=== PATIENT | female | born 1970 | race Asian ===

== ENCOUNTER 2020-02-12 07:47 | Outpatient (CLI) | payer BC ==
--- NOTE | 2020-02-12 09:17 | Cat Scan Report ---
CT of the abdomen and pelvis without contrast INDICATION: UTI x2 weeks COMPARISON: None FINDINGS: Lung bases are clear. There is slight fatty infiltration liver. The spleen, pancreas and ad renal glands are grossly unremarkable with the left kidney appearing normal as well. A 1 cm low densi ty in the right upper pole is probably a cyst. There is a submillimeter stone in the right upper pole as well as a larger 5 mm stone in the right lower pole. No hydronephrosis or perinephric edema howev er. No definite gallbladder or biliary tree abnormality. No ascites or carcinomatosis. There is howev er moderate retroperitoneal adenopathy with several enlarged retroperitoneal lymph nodes measuring up to 3.2 cm in diameter. There is no celiac axis or mesenteric adenopathy however. CT of the pelvis shows a appendix. No uterine or adnexal masses. There has been prior tubal ligation. The diverticulosis or diverticulitis. No significant skeletal lesion. IMPRESSION: Moderate upper abdominal retroperitoneal adenopathy of uncertain etiology. PET scan may b e of benefit for further evaluation. There is slight right nephrolithiasis but no ureteral stone or o bstruction. Automated exposure control was utilized to diminish radiation dose. Signer Name: Damián Kaplan MD Signed: 02/12/2020 9:13 AM Workstation Name: [id number]
== END 2020-02-12 07:48 | disposition home or self-care (01) ==
LOC: CT 07:47
PROVIDERS: ATTEND Urology
DX: N20.0 Calculus of kidney (principal); R59.9 Enlarged lymph nodes, unspecified; N39.0 Urinary tract infection, site not specified
CPT/HCPCS: 74176

== ENCOUNTER 2020-09-10 22:27 | Observation (INO) | payer BC ==
[2020-09-10] MEDS ORDERED: ASPIRIN 325 MG TAB PO ONE (22:59)
--- NOTE | 2020-09-10 23:23 | XRay Report ---
CHEST 1 VIEW INDICATION / CLINICAL INFORMATION: Chest Pain. COMPARISON: None available. FINDINGS: SUPPORT DEVICES: None. HEART / MEDIASTINUM: No significant abnormality. LUNGS / PLEURA: Interstitial markings are slightly prominent bilaterally of uncertain clinical signif icance as I have no prior chest films for comparison. Lungs are otherwise clear. No area of consolida tion. No pleural effusion. No pneumothorax. ADDITIONAL FINDINGS: No significant additional findings. IMPRESSION: 1. Slightly prominent interstitial markings bilaterally. It is unclear if this is chronic as I have n o prior radiographs for comparison. 2. No other significant finding. Signer Name: Rosalie Albert MD Signed: 09/10/2020 11:18 PM Workstation Name: [id number]
[2020-09-10 23:46] LABS: Basophils # (Auto) 0.1 K/mm3 (0.0-0.1); Basophils % (Auto) 0.8 % (0.0-1.8); Eosinophils # (Auto) 0.3 K/mm3 (0.0-0.4); Eosinophils % (Auto) 2.5 % (0.0-4.3); Hematocrit 42.2 % (30.3-42.9); Hemoglobin 13.9 gm/dl (10.1-14.3); Lymphocytes # (Auto) 3.4 K/mm3 (1.2-5.4); Lymphocytes % (Auto) 25.6 % (13.4-35.0); Mean Corpuscular HGB Conc 33 % (30-34); Mean Corpuscular Volume 88 fl (79-97); Monocytes # (Auto) 0.9 K/mm3 (0.0-0.8); Platelet Count 242 K/mm3 (140-440); Red Blood Count 4.81 M/mm3 (3.65-5.03); Red Cell Distribution Width 13.8 % (13.2-15.2)
[2020-09-11 00:08] LABS: Blood Urea Nitrogen 22 mg/dL (7-17); Calcium 10.2 mg/dL (8.4-10.2); Hemolysis Index 3
[2020-09-11 00:11] LABS: BUN/Creatinine Ratio 44
--- NOTE | 2020-09-11 03:56 | Emergency Department Report ---
ED Chest Pain HPI - General Chief Complaint: Chest Pain Stated Complaint: CHEST PAIN Time Seen by Provider: 09/11/20 03:45 Source: patient Mode of arrival: Ambulatory Limitations: No Limitations - History of Present Illness Initial Comments: Patient is a 50-year-old female who presents emergency room with complaints of chest pain. Patient states her chest pain started 5 hours ago. Patient states her chest pain is becoming more frequent and worsening. Patient denies shortness of breath. Patient denies fever and chills. Patient denies nausea and vomiting. Patient denies diaphoresis. Patient states he sees a guidance services coordinator for a partially blocked artery and CAD. Patient states she has history of diabetes and hypertension. Patient states that her chest pain is better with rest and worse with exertion. Patient denies recent travel. Patient denies recent international travel. Patient denies exposure to the novel coronavirus. Patient denies sick contacts. Patient denies fever and chills. Patient denies cough. Patient denies diarrhe a. Patient denies coming in contact with anybody with symptoms of the novel coronavirus. MD Complaint: chest pain -: Sudden Onset: during rest Pain Location: substernal, left chest Pain Radiation: LUE, neck Severity: severe Severity scale (0 -10): 8 Quality: sharp Consistency: intermittent Improves With: rest Worsens With: exertion re: denies: nausea, vomting, diaphoresis, dyspnea, sense of impending doom Other Symptoms: denies: cough, fever, syncope, rash, acid taste in mouth, leg swelling, palpitations, burping Treatments Prior to Arrival: none Aspirin use within the Past 7 Days: (1) Yes - Related Data On Oral Contraceptives: No Allergies Allergy/AdvReac Type Severity Reaction Status Date / Time No Known Allergies Allergy Verified 09/11/20 03:47 Heart Score - HEART Score History: Moderately suspicious EKG: Non-specific Age: 45-65 Risk factors: > 3 risk factors or hx of atherosclerotic disease Troponin: < normal limit HEART Score: 5 ED Review of Systems ROS: Stated complaint: CHEST PAIN Other details as noted in HPI Constitutional: denies: chills, fever Eyes: denies: eye pain, eye discharge, vision change ENT: denies: ear pain, throat pain Respiratory: denies: cough, shortness of breath, wheezing Cardiovascular: chest pain. denies: palpitations Endocrine: no symptoms reported Gastrointestinal: denies: abdominal pain, nausea, diarrhea Genitourinary: denies: urgency, dysuria, discharge Musculoskeletal: denies: back pain, joint swelling, arthralgia Skin: denies: rash, lesions Neurological: denies: headache, weakness, paresthesias Psychiatric: denies: anxiety, depression Hematological/Lymphatic: denies: easy bleeding, easy bruising ED Past Medical Hx - Past Medical History Previous Medical History?: Yes Hx Hypertension: Yes Hx Diabetes: Yes Additional medical history: Coronary artery disease - Surgical History Past Surgical History?: No - Family History Family history: no significant - Social History Smoking Status: Never Smoker Substance Use Type: None ED Physical Exam - General Limitations: No Limitations General appearance: alert, in no apparent distress - Head Head exam: Present: atraumatic, normocephalic - Eye Eye exam: Present: normal appearance - ENT ENT exam: Present: mucous membranes moist - Neck Neck exam: Present: normal inspection - Respiratory Respiratory exam: Present: normal lung sounds bilaterally. Absent: respiratory distress - Cardiovascular Cardiovascular Exam: Present: regular rate, normal rhythm. Absent: systolic murmur, diastolic murmur, rubs, gallop - GI/Abdominal GI/Abdominal exam: Present: soft, normal bowel sounds. Absent: distended, tenderness, guarding - Rectal Rectal exam: Present: deferred - Extremities Exam Extremities exam: Present: normal inspection - Back Exam Back exam: Present: normal inspection - Neurological Exam Neurological exam: Present: alert, oriented X3 - Psychiatric Psychiatric exam: Present: normal affect, normal mood - Skin Skin exam: Present: warm, dry, intact, normal color. Absent: rash ED Course Vital Signs 09/11/20 04:39 Temperature 98.2 F Pulse Rate 92 H Respiratory 18 Rate Blood Pressure 101/70 [Left] O2 Sat by Pulse 100 Oximetry - Reevaluation(s) Reevaluation #1: I discussed all results with patient. I discussed plan of care with patient. Patient agrees with plan of care and admission. Patient to be admitted to the hospitalist service. 09/11/20 03:53 - Consultations Consultation #1: Hospitalist consulted for admission. Hospitalist to admit patient. 09/11/20 03:54 NIRAV score - Nirav Score Age > 65: (0) No Aspirin use within the Past 7 Days: (1) Yes 3 or more CAD Risk Factors: (1) Yes 2 or more Angina events in past 24 hrs: (1) Yes Known CAD with more than 50% Stenosis: (0) No Elevated Cardiac Markers: (0) No ST Deviation Greater than 0.5mm: (0) No NIRAV Score: 3 ED Medical Decision Making - Lab Data Result diagrams: 09/11/20 04:58 09/10/20 23:15 - EKG Data -: EKG Interpreted by Me EKG shows normal: sinus rhythm, axis, intervals, QRS complexes, ST-T waves Rate: normal - Radiology Data Radiology results: report reviewed, image reviewed CHEST 1 VIEW INDICATION / CLINICAL INFORMATION: Chest Pain. COMPARISON: None available. FINDINGS: SUPPORT DEVICES: None. HEART / MEDIASTINUM: No significant abnormality. LUNGS / PLEURA: Interstitial markings are slightly prominent bilaterally of uncertain clinical significance as I have no prior chest films for comparison. Lungs are otherwise clear. No area of consolidation. No pleural effusion. No pneumothorax. ADDITIONAL FINDINGS: No significant additional findings. IMPRESSION: 1. Slightly prominent interstitial markings bilaterally. It is unclear if this is chronic as I have no prior radiographs for comparison. 2. No other significant finding. - Medical Decision Making Patient is a 50-year-old female that presents emergency room with complaints of chest pain. Patient's chest pain going on for 5 hours prior to initial evaluation. Patient has a history of diabetes and hypertension and the patient states he also has a history of a mildly blocked artery in her heart which she is taking a medication prescribed by her guidance services coordinator. Patient had a chest x- ray which was negative. Patient had an EKG. Patient's EKG was negative for acute findings. Patient EKG did not show a STEMI. Patient had labs done which were essentially unremarkable. Patient has elevated NIRAV and heart score. Patient has significant cardiovascular risk factors. Patient admitted to the hospital service for evaluation treatment and rule out ACS. - Differential Diagnosis ACS, chest pain, CAD, diabetes. Critical Care Time: Yes Critical care time in (mins) excluding proc time.: 35 Critical care attestation.: If time is entered above; I have spent that time in minutes in the direct care of this critically ill patient, excluding procedure time. 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
[2020-09-11] MEDS ORDERED: MORPHINE 4 MG/1 ML INJ IV PRN (04:07)
[2020-09-11] MEDS ORDERED: ACETAMINOPHEN 325 MG TAB PO PRN ×2 (04:07)
[2020-09-11] MEDS ORDERED: MAGNESIUM HYDROXIDE (MOM) ORAL LIQD UDC PO PRN (04:07)
[2020-09-11] MEDS ORDERED: ONDANSETRON 4 MG/2 ML INJ IV PRN (04:07)
[2020-09-11] MEDS ORDERED: DEXTROSE 50% IN WATER (25GM) 50 ML SYRINGE IV PRN (04:07)
[2020-09-11] MEDS ORDERED: NITROGLYCERIN 0.4 MG TAB SUBL SL PRN (04:07)
[2020-09-11] MEDS ORDERED: ASPIRIN 325 MG TAB ONE (04:10)
--- NOTE | 2020-09-11 04:17 | History and Physical Report ---
History of Present Illness Date of examination: 09/11/20 Date of admission: 09/11/2020 Chief complaint: Chest pain History of present illness: 50-year-old female with known history of hypertension, diabetes mellitus and coronary artery disease presenting to the emergency room today complaining of chest pain. Chest pain is said to have started about 5 hours prior to presenting in the emergency room. She has had associated headache, diaphoresis and some mild shortness of breath. She denies any cough, no nausea vomiting and no diarrhea. Patient denies any headache or dizziness. Chest pain is made worse on exertion and better on resting. Pain felt like pressure. Patient states she follows up with a [place] for partially blocked artery and coronary artery disease. Work-up in the emergency room today including EKG ,troponin and chest x-ray has been unremarkable. He is being admitted for chest pain evaluation. Past History Past Medical History: CAD, diabetes, hypertension Past Surgical History: No surgical history Social history: no significant social history Family history: hypertension ( Mother with h/o hypertension) Medications and Allergies Allergies Allergy/AdvReac Type Severity Reaction Status Date / Time No Known Allergies Allergy Verified 09/11/20 03:47 Review of Systems Constitutional: sweats, no fever, no chills Ears, nose, mouth and throat: no nasal congestion, no sore throat Cardiovascular: chest pain, no palpitations, no syncope Respiratory: no cough, no shortness of breath Gastrointestinal: no abdominal pain, no nausea, no vomiting, no diarrhea Genitourinary Female: no pelvic pain, no flank pain, no dysuria, no hematuria Musculoskeletal: no neck pain, no low back pain Integumentary: no rash, no pruritis Neurological: headaches, no confusion Psychiatric: no anxiety, no depression Exam - Constitutional General appearance: Present: no acute distress, mild distress, well-nourished - EENT Eyes: Present: PERRL, EOM intact. Absent: scleral icterus ENT: hearing intact, clear oral mucosa, dentition normal - Neck Neck: Present: supple, normal ROM - Respiratory Respiratory effort: normal Respiratory: bilateral: CTA - Cardiovascular Rhythm: regular Heart Sounds: Present: S1 & S2. Absent: gallop, systolic murmur, diastolic murmur, rub - Extremities Extremities: no ischemia, pulses intact, pulses symmetrical, No edema, Full ROM Peripheral Pulses: within normal limits - Abdominal General gastrointestinal: Present: soft, non-tender, non-distended, normal bowel sounds. Absent: mass - Integumentary Integumentary: Present: clear, warm, dry - Musculoskeletal Musculoskeletal: strength equal bilaterally - Psychiatric Psychiatric: appropriate mood/affect, intact judgment & insight, memory intact, cooperative - Neurologic Neurologic: CNII-XII intact, no focal deficits, moves all extremities HEART Score - HEART Score EKG: Non-specific Age: 45-65 Risk factors: > 3 risk factors or hx of atherosclerotic disease Troponin: Troponin T < 0.010 ng/mL (0.00-0.029) 09/11/20 02:10 Troponin: < normal limit Results - Labs CBC & Chem 7: 09/10/20 23:15 09/10/20 23:15 Labs: Abnormal lab results 09/10/20 09/10/20 Range/Units 23:15 23:15 WBC 13.2 H (4.5-11.0) K/mm3 Cloud # (Auto) 0.9 H (0.0-0.8) K/mm3 Seg Neutrophils # 8.5 H (1.8-7.7) K/mm3 BUN 22 H (7-17) mg/dL Creatinine 0.5 L (0.6-1.2) mg/dL Glucose 262 H (65-100) mg/dL Assessment and Plan - Patient Problems (1) Chest pain Current Visit: Yes Status: Acute Qualifiers: Chest pain type: unspecified Qualified Code(s): R07.9 - Chest pain, unspecified Plan to address problem: Will check serial cardiac enzymes. Will continue on aspirin, sublingual nitroglycerin and IV morphine as need for chest pain. Will await further evaluation from cardiology. (2) Hypertension Current Visit: Yes Status: Acute Plan to address problem: Resume routine home medications once reconciled. Will monitor vital signs closely. (3) Diabetes Current Visit: Yes Status: Acute Qualifiers: Diabetes mellitus type: type 2 Diabetes mellitus half-way insulin use: unspecified terminal operator insulin use status Diabetes mellitus complication status: with other specified complication Qualified Code(s): E11.69 - Type 2 diabetes mellitus with other specified complication Plan to address problem: We will monitor Accu-Cheks closely. (4) DVT prophylaxis Current Visit: Yes Status: Acute Plan to address problem: Patient placed on subcutaneous Lovenox. (5) Full code status Current Visit: Yes Status: Acute
[2020-09-11 05:30] LABS: Basophils # (Auto) 0.1 K/mm3 (0.0-0.1); Basophils % (Auto) 0.6 % (0.0-1.8); Eosinophils # (Auto) 0.2 K/mm3 (0.0-0.4); Eosinophils % (Auto) 1.6 % (0.0-4.3); Hematocrit 41.7 % (30.3-42.9); Hemoglobin 13.3 gm/dl (10.1-14.3); Lymphocytes % (Auto) 27.7 % (13.4-35.0); Mean Corpuscular HGB Conc 32 % (30-34); Mean Corpuscular Volume 89 fl (79-97); Monocytes % (Auto) 6.7 % (0.0-7.3); Platelet Count 235 K/mm3 (140-440); Red Blood Count 4.69 M/mm3 (3.65-5.03); Red Cell Distribution Width 13.9 % (13.2-15.2)
[2020-09-11 05:48] LABS: Blood Urea Nitrogen 20 mg/dL (7-17); Calcium 9.9 mg/dL (8.4-10.2); HDL Cholesterol 64 mg/dL (40-59); Hemolysis Index 6; LDL Cholesterol,Direct 121 mg/dL (50-130)
[2020-09-11 05:50] LABS: BUN/Creatinine Ratio 50
[2020-09-11] MEDS ORDERED: REGADENOSON 0.4 MG/5 ML INJ IV ONE ×2 (06:40→06:41)
--- NOTE | 2020-09-11 09:04 | Progress Note ---
Assessment and Plan Assessment and plan: Chest pain Follow-up serial cardiac enzymes. Will continue on aspirin, sublingual nitroglycerin and IV morphine as need for chest pain. Chest x-ray reveals slightly prominent interstitial markings bilaterally. Check CRP and procalcitonin. Patient with leukocytosis Will await further evaluation from cardiology. Leukocytosis. Monitor CBC Hypertension Resume routine home medications once reconciled. Will monitor vital signs closely. Diabetes type II We will monitor Accu-Cheks closely and SSRI as needed. DVT prophylaxis Patient placed on subcutaneous Lovenox. Full code status History Interval history: No new issues overnight. Hospitalist Physical - Constitutional Vitals: Temp Pulse Resp BP Pulse Ox 98.2 F 91 H 13 139/74 97 09/11/20 04:39 09/11/20 08:01 09/11/20 08:01 09/11/20 08:01 09/11/20 08:01 General appearance: Present: no acute distress, well-nourished - EENT Eyes: Present: PERRL, EOM intact ENT: hearing intact, clear oral mucosa, dentition normal - Neck Neck: Present: supple, normal ROM - Respiratory Respiratory effort: normal Respiratory: bilateral: CTA - Cardiovascular Rhythm: regular Heart Sounds: Present: S1 & S2. Absent: gallop, rub - Extremities Extremities: no ischemia, No edema, Full ROM - Abdominal General gastrointestinal: soft, non-tender, non-distended, normal bowel sounds - Integumentary Integumentary: Present: clear, warm, dry - Neurologic Neurologic: CNII-XII intact, moves all extremities HEART Score - HEART Score EKG: Non-specific Age: 45-65 Risk factors: > 3 risk factors or hx of atherosclerotic disease Troponin: Troponin T < 0.010 ng/mL (0.00-0.029) 09/11/20 04:58 Troponin: < normal limit Results - Labs CBC & Chem 7: 09/11/20 04:58 09/11/20 04:58 Labs: Laboratory Last Values WBC 14.6 K/mm3 (4.5-11.0) H 09/11/20 04:58 RBC 4.69 M/mm3 (3.65-5.03) 09/11/20 04:58 Hgb 13.3 gm/dl (10.1-14.3) 09/11/20 04:58 Hct 41.7 % (30.3-42.9) 09/11/20 04:58 MCV 89 fl (79-97) 09/11/20 04:58 MCH 28 pg (28-32) 09/11/20 04:58 MCHC 32 % (30-34) 09/11/20 04:58 RDW 13.9 % (13.2-15.2) 09/11/20 04:58 Plt Count 235 K/mm3 (140-440) 09/11/20 04:58 Lymph % (Auto) 27.7 % (13.4-35.0) 09/11/20 04:58 Mercer % (Auto) 6.7 % (0.0-7.3) 09/11/20 04:58 Eos % (Auto) 1.6 % (0.0-4.3) 09/11/20 04:58 Baso % (Auto) 0.6 % (0.0-1.8) 09/11/20 04:58 Lymph # (Auto) 4.0 K/mm3 (1.2-5.4) 09/11/20 04:58 Mercer # (Auto) 1.0 K/mm3 (0.0-0.8) H 09/11/20 04:58 Eos # (Auto) 0.2 K/mm3 (0.0-0.4) 09/11/20 04:58 Baso # (Auto) 0.1 K/mm3 (0.0-0.1) 09/11/20 04:58 Seg Neutrophils % 63.4 % (40.0-70.0) 09/11/20 04:58 Seg Neutrophils # 9.3 K/mm3 (1.8-7.7) H 09/11/20 04:58 Sodium 139 mmol/L (137-145) 09/11/20 04:58 Potassium 4.1 mmol/L (3.6-5.0) 09/11/20 04:58 Chloride 100.8 mmol/L (98-107) 09/11/20 04:58 Carbon Dioxide 29 mmol/L (22-30) 09/11/20 04:58 Anion Gap 13 mmol/L 09/11/20 04:58 BUN 20 mg/dL (7-17) H 09/11/20 04:58 Creatinine 0.4 mg/dL (0.6-1.2) L 09/11/20 04:58 Estimated GFR > 60 ml/min 09/11/20 04:58 BUN/Creatinine Ratio 50 % 09/11/20 04:58 Glucose 207 mg/dL (65-100) H 09/11/20 04:58 Calcium 9.9 mg/dL (8.4-10.2) 09/11/20 04:58 Troponin T < 0.010 ng/mL (0.00-0.029) 09/11/20 04:58 Triglycerides 134 mg/dL (2-149) 09/11/20 04:58 Cholesterol 192 mg/dL (50-199) 09/11/20 04:58 LDL Cholesterol Direct 121 mg/dL (50-130) 09/11/20 04:58 HDL Cholesterol 64 mg/dL (40-59) H 09/11/20 04:58 Cholesterol/HDL Ratio 3.00 % 09/11/20 04:58 Brown/IV: IV Catheter Type [Left Distal INT / Saline Lock Port Antecubital] Active Medications - Current Medications Current Medications: Generic Name Dose Route Start Last Admin Trade Name Freq PRN Reason Stop Dose Admin Acetaminophen 650 mg 09/11/20 04:07 Tylenol PO Q4H PRN Pain MILD(1-3)/Fever >100.5/TORRE Aspirin 325 mg 09/12/20 10:00 Ecotrin PO QDAY [facility] Dextrose 50 ml 09/11/20 04:07 D50w (25gm) Syringe IV Q30MIN PRN Hypoglycemia Protocol Insulin Human Lispro 0 unit 09/11/20 07:30 Humalog SUB-Q ACHS [facility] Protocol Magnesium Hydroxide 30 ml 09/11/20 04:07 Milk Of Magnesia PO Q4H PRN Constipation Morphine Sulfate 2 mg 09/11/20 04:07 Morphine IV Q5MIN PRN Chest Pain Nitroglycerin 0.4 mg 09/11/20 04:07 Nitrostat SL Q5M PRN Chest Pain Ondansetron HCl 4 mg 09/11/20 04:07 Zofran IV Q8H PRN Nausea And Vomiting Sodium Chloride 10 ml 09/11/20 10:00 Sodium Chloride Flush Syringe 10 Ml IV BID BABS Sodium Chloride 10 ml 09/11/20 04:07 Sodium Chloride Flush Syringe 10 Ml IV PRN PRN LINE FLUSH
--- NOTE | 2020-09-11 12:07 | Consultation ---
History of Present Illness Consult date: 09/11/20 Consult reason: chest pain History of present illness: Patient is a 50-year-old Maltese-speaking female who is admitted with chest p ain. She describes, poorly characterized, nonexertional and atypical chest pain, for which she was evaluated in the emergency room and referred for admission. Serial ECGs have been normal sinus rhythm, normal ECG with no ST or T wave abnormalities of ischemia. Serial cardiac troponin levels were negative. Today, she exercised for 6 minutes of a Sidney protocol, test was held in stage I, but she achieved over 5 METS and reached target heart rate. There was no chest pain, no ST changes, no dysrhythmias. Thallium perfusion images pending for final test interpretation. Comorbidities listed include hypertension and diabetes. Past History Past Medical History: diabetes, hypertension Past Surgical History: No surgical history Social history: no significant social history Family history: hypertension ( Mother with h/o hypertension) Medications and Allergies Allergies Allergy/AdvReac Type Severity Reaction Status Date / Time No Known Allergies Allergy Verified 09/11/20 03:47 Active Meds: Active Medications Acetaminophen (Tylenol) 650 mg PO Q4H PRN PRN Reason: Pain MILD(1-3)/Fever >100.5/TORRE Aspirin (Ecotrin) 325 mg PO QDAY BABS Dextrose (D50w (25gm) Syringe) 50 ml IV Q30MIN PRN; Protocol PRN Reason: Hypoglycemia Insulin Human Lispro (Humalog) 0 unit SUB-Q ACHS BABS; Protocol Magnesium Hydroxide (Milk Of Magnesia) 30 ml PO Q4H PRN PRN Reason: Constipation Morphine Sulfate (Morphine) 2 mg IV Q5MIN PRN PRN Reason: Chest Pain Nitroglycerin (Nitrostat) 0.4 mg SL Q5M PRN PRN Reason: Chest Pain Ondansetron HCl (Zofran) 4 mg IV Q8H PRN PRN Reason: Nausea And Vomiting Sodium Chloride (Sodium Chloride Flush Syringe 10 Ml) 10 ml IV BID BABS Sodium Chloride (Sodium Chloride Flush Syringe 10 Ml) 10 ml IV PRN PRN PRN Reason: LINE FLUSH Review of Systems Cardiovascular: chest pain, no orthopnea, no palpitations, no rapid/irregular heart beat, no edema, no syncope, no lightheadedness, no shortness of breath Physical Examination Vital Signs Temp Pulse Resp BP Pulse Ox 98.7 F 100 H 18 153/91 98 09/10/20 22:40 09/10/20 22:40 09/10/20 22:40 09/10/20 22:40 09/10/20 22:40 General appearance: no acute distress HEENT: Positive: PERRL Neck: Positive: neck supple Cardiac: Positive: Reg Rate and Rhythm Lungs: Positive: clear to auscultation Neuro: Positive: Grossly Intact Abdomen: Positive: Soft Female genitourinary: deferred Skin: Positive: Clear Extremities: Absent: edema Results 09/11/20 04:58 09/11/20 04:58 Lipids 09/11/20 Range/Units 04:58 Triglycerides 134 (2-149) mg/dL Cholesterol 192 (50-199) mg/dL HDL Cholesterol 64 H (40-59) mg/dL Cholesterol/HDL Ratio 3.00 % CBC 09/10/20 09/11/20 Range/Units 23:15 04:58 WBC 13.2 H 14.6 H (4.5-11.0) K/mm3 RBC 4.81 4.69 (3.65-5.03) M/mm3 Hgb 13.9 13.3 (10.1-14.3) gm/dl Hct 42.2 41.7 (30.3-42.9) % Plt Count 242 235 (140-440) K/mm3 Lymph # (Auto) 3.4 4.0 (1.2-5.4) K/mm3 Amelia # (Auto) 0.9 H 1.0 H (0.0-0.8) K/mm3 Eos # (Auto) 0.3 0.2 (0.0-0.4) K/mm3 Baso # (Auto) 0.1 0.1 (0.0-0.1) K/mm3 Comprehensive Metabolic Panel 09/10/20 09/11/20 Range/Units 23:15 04:58 Sodium 140 139 (137-145) mmol/L Potassium 4.5 4.1 (3.6-5.0) mmol/L Chloride 102.8 100.8 (98-107) mmol/L Carbon Dioxide 24 29 (22-30) mmol/L BUN 22 H 20 H (7-17) mg/dL Creatinine 0.5 L 0.4 L (0.6-1.2) mg/dL Glucose 262 H 207 H (65-100) mg/dL Calcium 10.2 9.9 (8.4-10.2) mg/dL EKG interpretations - Telemetry EKG Rhythm: Sinus Rhythm Assessment and Plan - Patient Problems (1) Atypical chest pain Current Visit: Yes Status: Acute Plan to address problem: Patient presents with atypical chest pain, normal ECG, normal cardiac enzymes. She has undergone an exercise thallium stress test, no chest pain and no ST changes of ischemia on exercise testing, thallium images are pending.
[2020-09-11] MEDS: INSULIN LISPRO 100 UNIT/ML VIAL 3 mL SUB-Q SCH ×3 (13:29→21:59)
[2020-09-12 00:36] LABS: Bacteria,Urine 1+ /HPF (Negative); Bilirubin,Urine NEG (Negative); Blood,Urine MOD (Negative); Color,Urine Straw (Yellow); Protein,Urine <15 mg/dL mg/dL (Negative); Urobilinogen,Urine < 2.0 mg/dL (<2.0)
[2020-09-12 05:25] LABS: Basophils # (Auto) 0.1 K/mm3 (0.0-0.1); Basophils % (Auto) 0.8 % (0.0-1.8); Eosinophils # (Auto) 0.2 K/mm3 (0.0-0.4); Eosinophils % (Auto) 2.1 % (0.0-4.3); Hematocrit 40.9 % (30.3-42.9); Hemoglobin 13.6 gm/dl (10.1-14.3); Lymphocytes # (Auto) 2.7 K/mm3 (1.2-5.4); Lymphocytes % (Auto) 24.1 % (13.4-35.0); Mean Corpuscular HGB Conc 33 % (30-34); Mean Corpuscular Volume 89 fl (79-97); Monocytes # (Auto) 0.7 K/mm3 (0.0-0.8); Monocytes % (Auto) 6.3 % (0.0-7.3); Platelet Count 230 K/mm3 (140-440); Red Blood Count 4.62 M/mm3 (3.65-5.03); Red Cell Distribution Width 13.6 % (13.2-15.2)
--- NOTE | 2020-09-12 05:36 | Treadmill Report ---
THALLIUM STRESS TEST LEFT VENTRICLE: Left ventricular chamber size is within normal spread. Perfusion study demonstrates homogeneous uptake of the tracer in all segments, no significant defects identified. Gated analysis demonstrates normal left ventricular systolic function, ejection fraction greater than 70%. CONCLUSION: Normal myocardial perfusion study. JOB# [id number] CA/NTS
[2020-09-12 05:38] LABS: Blood Urea Nitrogen 16 mg/dL (7-17); Calcium 9.4 mg/dL (8.4-10.2); Hemolysis Index 8
[2020-09-12 05:42] LABS: BUN/Creatinine Ratio 40
[2020-09-12] MEDS: INSULIN LISPRO 100 UNIT/ML VIAL 3 mL SUB-Q SCH ×2 (09:35→12:05)
--- NOTE | 2020-09-12 09:41 | Progress Note ---
Assessment and Plan - Patient Problems (1) Atypical chest pain Current Visit: Yes Status: Acute Plan to address problem: Normal perfusion MPI this presentation. Hyperdynamic systolic function, EF > 60-65%. No further cardiac workup indicated. Subjective Date of service: 09/12/20 Interval history: Patient is resting in bed comfortably. Denies chest pain and denies SOB. Objective Vital Signs Temp Pulse Resp BP Pulse Ox 09/12/20 07:22 99.2 F 97 H 18 151/91 97 09/12/20 04:08 98.0 F 85 18 144/77 98 09/12/20 04:00 93 H 09/12/20 00:03 125/69 09/11/20 20:00 96 H 09/11/20 19:54 98.8 F 83 18 165/81 98 09/11/20 15:22 98.4 F 108 H 20 121/68 98 09/11/20 11:51 98.6 F 101 H 18 99 09/11/20 11:50 98.6 F 99 H 18 105/71 98 09/11/20 10:27 135/76 09/11/20 10:26 101/62 09/11/20 10:25 112/71 09/11/20 09:45 127/79 - Physical Examination General: No Apparent Distress HEENT: Positive: PERRL Neck: Positive: neck supple Cardiac: Positive: Reg Rate and Rhythm Lungs: Positive: Decreased Breath Sounds Neuro: Positive: Grossly Intact Abdomen: Positive: Soft Skin: Positive: Clear Extremities: Absent: edema - Labs and Meds Coagulation 09/12/20 Range/Units 04:36 PT 13.4 (12.2-14.9) Sec. INR 1.00 (0.87-1.13) CBC 09/12/20 Range/Units 04:36 WBC 11.1 H (4.5-11.0) K/mm3 RBC 4.62 (3.65-5.03) M/mm3 Hgb 13.6 (10.1-14.3) gm/dl Hct 40.9 (30.3-42.9) % Plt Count 230 (140-440) K/mm3 Lymph # (Auto) 2.7 (1.2-5.4) K/mm3 [place] # (Auto) 0.7 (0.0-0.8) K/mm3 Eos # (Auto) 0.2 (0.0-0.4) K/mm3 Baso # (Auto) 0.1 (0.0-0.1) K/mm3 Comprehensive Metabolic Panel 09/12/20 Range/Units 04:36 Sodium 139 (137-145) mmol/L Potassium 4.1 (3.6-5.0) mmol/L Chloride 101.7 (98-107) mmol/L Carbon Dioxide 31 H (22-30) mmol/L BUN 16 (7-17) mg/dL Creatinine 0.4 L (0.6-1.2) mg/dL Glucose 236 H (65-100) mg/dL Calcium 9.4 (8.4-10.2) mg/dL
[2020-09-12] MEDS ORDERED: ASPIRIN EC 325 MG TAB PO SCH (10:00)
--- NOTE | 2020-09-12 10:15 | Discharge Summary ---
Providers - Providers Date of Admission: 09/11/20 03:57 Date of discharge: 09/12/20 Attending physician: MATT GAMEZ 09/11/20 Consult to Cardiac Rehabilitation [CONS] Routine Reason For Exam: Phase I 09/11/20 04:07 Consult to Cardiology [CONS] Routine Consulting Provider: RADHAMES MAJOR Reason For Exam: chest pain, h/o CAD Consult to Dietitian/Nutrition [CONS] Routine Physician Instructions: Reason For Exam: Reason for Consult: Diet education [facility] Reason for admission: cp Condition: Critical Hospital course: 50-year-old female with past medical history of hypertension diabetes mellitus who presented through the emergency department with chief complaint of chest pain. Patient was admitted with diagnosis of chest pain and underwent stress test which was found to be negative for ischemia. Patient was seen by cardiology in consultation. Serial cardiac enzymes and EKG were found to be negative. During hospitalization, patient was also noted to have a UTI and will be discharged home on antibiotics. Etiology of chest pain is GERD dedicated discharge time 35 minutes. Disposition: TO HOME OR SELFCARE - Discharge Diagnoses (1) GERD (gastroesophageal reflux disease) Status: Acute (2) UTI (urinary tract infection) Status: Acute (3) Atypical chest pain Status: Acute (4) Diabetes Status: Acute Qualifiers: Diabetes mellitus type: type 2 Diabetes mellitus terminal superintendent insulin use: unspecified terminal superintendent insulin use status Diabetes mellitus complication status: with other specified complication Qualified Code(s): E11.69 - Type 2 diabetes mellitus with other specified complication (5) Hypertension Status: Acute Core Measure Documentation - Palliative Care Palliative Care/ Comfort Measures: Not Applicable - Core Measures Any of the following diagnoses?: none Exam - Constitutional Vitals: Temp Pulse Resp BP Pulse Ox 99.2 F 97 H 18 151/91 97 09/12/20 07:22 09/12/20 07:22 09/12/20 07:22 09/12/20 07:22 09/12/20 07:22 General appearance: Present: no acute distress, well-nourished - EENT Eyes: Present: PERRL ENT: hearing intact, clear oral mucosa - Neck Neck: Present: supple, normal ROM - Respiratory Respiratory effort: normal Respiratory: bilateral: CTA - Cardiovascular Heart Sounds: Present: S1 & S2. Absent: rub, click - Extremities Extremities: pulses symmetrical, No edema Peripheral Pulses: within normal limits - Abdominal General gastrointestinal: Present: soft, non-tender, non-distended, normal bowel sounds Female genitourinary: Present: normal - Integumentary Integumentary: Present: clear, warm, dry - Musculoskeletal Musculoskeletal: gait normal, strength equal bilaterally - Psychiatric Psychiatric: appropriate mood/affect, intact judgment & insight - Neurologic Neurologic: CNII-XII intact, moves all extremities Plan Activity: no restrictions Weight Bearing Status: Weight Bear as Tolerated Diet: diabetic Follow up with: NATHAN MADRIGAL MD [Primary Care Provider] - 7 Days ROSE DUARTE MD [Staff Physician] - 7 Days Prescriptions: Cefuroxime Axetil [Ceftin] 500 mg PO Q12H #10 ml Aspirin EC [Ecotrin] 325 mg PO QDAY #30 tablet glipiZIDE [Glucotrol] 10 mg PO BID #60 Metformin HCl [metFORMIN] 1,000 mg PO BID #60 Lisinopril [Zestril] 5 mg PO QDAY #60
[2020-09-12 15:57] VITALS: BP 145/78
== END 2020-09-12 13:30 | disposition home or self-care (01) ==
LOC: ED 22:27 → 4A 09-11 03:57
PROVIDERS: ADMIT Internal Medicine Geriatric Medicine; ATTEND Hospitalist
DX: R07.89 Other chest pain (principal); I10 Essential (primary) hypertension; E11.65 Type 2 diabetes mellitus with hyperglycemia; I25.10 Atherosclerotic heart disease of native coronary artery without angina pectoris; K21.9 Gastro-esophageal reflux disease without esophagitis; N39.0 Urinary tract infection, site not specified; D72.829 Elevated white blood cell count, unspecified; Z79.82 Long term (current) use of aspirin; Z79.4 Long term (current) use of insulin
CPT/HCPCS: 36415; 71045; 78452; 80048; 80061; 81001; 82140; 82962; 84145; 84484; 85025; 85610; 86140; 87086; 93005; 93017; 93306; 96372; 96374; 99291; A9502; G0378; J2270; J2785

== ENCOUNTER 2022-01-17 19:48 | Emergency (ER) | payer BC ==
--- NOTE | 2022-01-17 22:46 | Emergency Department Report ---
ED General Adult HPI - General Chief complaint: BP Check / Ring removal req Stated complaint: BLOOD PRESSURE CONCERNS Time Seen by Provider: 01/17/22 22:28 Source: patient, family Mode of arrival: Ambulatory Limitations: No Limitations - History of Present Illness Initial comments: CC: "blood pressure spikes" HPI: This is a 52 yo female with hx of IDDM, HTN, coronary disease who presents with elevated blood pressure at home SBP 197. She is symptom free. She recently had exercise stress test at [facility] in October. She has eaten salty food at home and in the restaurant. She is compliant with metoprolol and Losartan. Thallium stress test obtained here 09/11/2020 normal myocardial perfusion study according to EMR report ejection fraction greater than 70%. -: Gradual, month(s) (Intermittent elevation of blood pressure for the past month) Severity scale (0 -10): 0 Consistency: intermittent Improves with: none Worsens with: none Associated Symptoms: denies other symptoms Treatments Prior to Arrival: none - Related Data Home Medications Medication Instructions Recorded Confirmed Last Taken Valacyclovir HCl [Valacyclovir] 500 mg PO QDAY 09/11/20 09/11/20 Unknown Previous Rx's Medication Instructions Recorded Last Taken Type Aspirin EC [Ecotrin] 325 mg PO QDAY #30 tablet 09/12/20 Unknown Rx Cefuroxime Axetil [Ceftin] 500 mg PO Q12H #10 ml 09/12/20 Unknown Rx Lisinopril [Zestril] 5 mg PO QDAY #60 09/12/20 Unknown Rx Metformin HCl [metFORMIN] 1,000 mg PO BID #60 09/12/20 Unknown Rx glipiZIDE [Glucotrol] 10 mg PO BID #60 09/12/20 Unknown Rx Allergies Allergy/AdvReac Type Severity Reaction Status Date / Time No Known Allergies Allergy Verified 09/11/20 03:47 ED Review of Systems ROS: Stated complaint: BLOOD PRESSURE CONCERNS Other details as noted in HPI Comment: All other systems reviewed and negative Constitutional: denies: chills, fever, malaise Respiratory: denies: cough, shortness of breath Cardiovascular: denies: chest pain Gastrointestinal: denies: abdominal pain, nausea, vomiting Neurological: headache (Intermittent headache) ED Past Medical Hx - Past Medical History Previous Medical History?: Yes Hx Hypertension: Yes Hx Diabetes: Yes Hx HIV: No Additional medical history: Coronary artery disease - Surgical History Past Surgical History?: No - Family History Family history: diabetes, hypertension - Social History Smoking Status: Never Smoker Substance Use Type: None - Medications Home Medications: Home Medications Medication Instructions Recorded Confirmed Last Taken Type Valacyclovir HCl [Valacyclovir] 500 mg PO QDAY 09/11/20 09/11/20 Unknown History Aspirin EC [Ecotrin] 325 mg PO QDAY #30 tablet 09/12/20 Unknown Rx Cefuroxime Axetil [Ceftin] 500 mg PO Q12H #10 ml 09/12/20 Unknown Rx Lisinopril [Zestril] 5 mg PO QDAY #60 09/12/20 Unknown Rx Metformin HCl [metFORMIN] 1,000 mg PO BID #60 09/12/20 Unknown Rx glipiZIDE [Glucotrol] 10 mg PO BID #60 09/12/20 Unknown Rx ED Physical Exam - General Limitations: No Limitations, Language Barrier (Daughter provided language interpretation) General appearance: alert, in no apparent distress - Head Head exam: Present: atraumatic, normocephalic - Eye Eye exam: Present: normal appearance - ENT ENT exam: Present: mucous membranes moist - Neck Neck exam: Present: normal inspection - Respiratory Respiratory exam: Present: normal lung sounds bilaterally. Absent: respiratory distress - Cardiovascular Cardiovascular Exam: Present: regular rate, normal rhythm, normal heart sounds. Absent: systolic murmur, diastolic murmur, rubs, gallop - GI/Abdominal GI/Abdominal exam: Present: soft, normal bowel sounds. Absent: distended, tenderness, guarding, rebound - Extremities Exam Extremities exam: Present: normal inspection - Neurological Exam Neurological exam: Present: alert, oriented X3 - Psychiatric Psychiatric exam: Present: normal affect, normal mood - Skin Skin exam: Present: warm, dry, intact, normal color. Absent: rash ED Course Vital Signs 01/17/22 20:23 Temperature 98.4 F Pulse Rate 119 H Respiratory 18 Rate Blood Pressure 115/76 O2 Sat by Pulse 97 Oximetry ED Medical Decision Making - Medical Decision Making Hypertensive urgency: Blood pressure 115/76 in emergency department. Recommended evaluation by primary care physician this week. Recommended low- salt diet. Critical care attestation.: If time is entered above; I have spent that time in minutes in the direct care of this critically ill patient, excluding procedure time. ED Disposition Clinical Impression: Hypertensive urgency Disposition: HOME / SELF CARE / HOMELESS Is pt being admited?: No Does the pt Need Aspirin: No Condition: Stable Instructions: Managing Your Hypertension Additional Instructions: Your blood pressure today in emergency department is 115/76 Print Language: PORTUGUESE
[2022-01-17 23:56] VITALS: BP 136/74
== END 2022-01-17 23:55 | disposition home or self-care (01) ==
LOC: ED 19:48
DX: I16.0 Hypertensive urgency (principal); I10 Essential (primary) hypertension; E11.9 Type 2 diabetes mellitus without complications
CPT/HCPCS: 99282